=== PATIENT | female | born 1980 | race Caucasian/White ===

== ENCOUNTER 2021-01-05 09:50 | Observation (INO) ==
[2021-01-05] MEDS ORDERED: Ringers Solution, Lactated 1,000 ML IVC ONE (10:00)
[2021-01-05] MEDS ORDERED: Metoclopramide 10 MG/2 ML VIAL IVP ONE (10:15)
[2021-01-05] MEDS ORDERED: Famotidine 20 MG/2 ML VIAL IVP ONE (10:15)
[2021-01-05] MEDS ORDERED: Lidocaine -MPF 1% 2 ML VIAL ONE (11:15)
[2021-01-05] MEDS ORDERED: Metoclopramide 10 MG/2 ML VIAL ONE (11:17)
[2021-01-05 12:58] LABS: Adenovirus Not Detected (Not Detect); Bordetella Pertussis Not Detected (Not Detect); Chlamydophila pneumoniae Not Detected (Not Detect); Coronavirus 229E Not Detected (Not Detect); Coronavirus HKU1 Not Detected (Not Detect); Coronavirus NL63 Not Detected (Not Detect); Coronavirus OC43 Not Detected (Not Detect); Human Metapneumovirus Not Detected (Not Detect); Human Rhinovirus/Enterovirus Not Detected (Not Detect); Influenza A Subtype 2009 H1 Not Detected (Not Detect); Influenza B Not Detected (Not Detect); Mycoplasma pneumoniae Not Detected (Not Detect); Parainfluenza Virus 1 Not Detected (Not Detect); Parainfluenza Virus 2 Not Detected (Not Detect); Parainfluenza Virus 3 Not Detected (Not Detect); Parainfluenza Virus 4 Not Detected (Not Detect); Respiratory Syncytial Virus Not Detected (Not Detect); SARS-CoV-2 Not Detected (Not Detect)
[2021-01-05] MEDS ORDERED: *HR* FentaNYL (PF) 100 MCG/2 ML VIAL ONE (13:06)
[2021-01-05] MEDS ORDERED: *HR* Propofol 200 MG/20 ML VIAL IVP ONE (13:06)
[2021-01-05] MEDS ORDERED: *HR* Midazolam HCl 2 MG/2 ML VIAL ONE (13:06)
[2021-01-05] MEDS ORDERED: Ketorolac 30 MG/ML VIAL ONE (13:07)
[2021-01-05] MEDS ORDERED: Acetaminophen IV 1,000 MG/100 ML BAG IVPB ONE (13:08)
[2021-01-05] MEDS ORDERED: Ringers Solution, Lactated 1,000 ML ONE (13:13)
[2021-01-05] MEDS ORDERED: Ondansetron 4 MG/2 ML VIAL ONE (13:17)
[2021-01-05] MEDS ORDERED: Dexamethasone 4 MG/ML VIAL ONE (13:17)
[2021-01-05 16:08] VITALS: BP 135/94
== END 2021-01-05 15:35 | disposition home or self-care (01) ==
LOC: SAMDAY 09:50 → 1NENULAB 09:50
PROVIDERS: ADMIT Obstetrics & Gynecology; ATTEND Obstetrics & Gynecology